=== PATIENT | male | born 2000 | race Hispanic/Latino ===

== ENCOUNTER 2024-05-21 12:38 | Emergency (ER) | payer BC, OTHER ==
[~2024-05-21] VITALS: Ht 177.8 cm; Wt 49.9 kg
[~2024-05-21 12:38] MED LIST: MAALOX MAXIMUM355 ML PO; OMEPRAZOLE20 M1 PO; ONDANSETRON ODT4 MG PO
[2024-05-21] MEDS ORDERED: BENZONATATE100 MG PO (12:49)
[2024-05-21 12:50] VITALS: PULSE 105; RESP 18; TEMP 99.9; O2SAT 98
== END 2024-05-21 12:54 | disposition home or self-care (01) ==
LOC: FSED 12:40
DX: R50.9 Fever, unspecified (principal); B34.9 Viral infection, unspecified; R05.9 Cough, unspecified
CPT/HCPCS: 99282